=== PATIENT | male | born 1985 | race Caucasian/White ===

== ENCOUNTER 2016-06-24 20:20 | Inpatient (IN) ==
[2016-06-24] MEDS ORDERED: ZOFRAN IV ONE (20:43)
[2016-06-24] MEDS ORDERED: NS 1,000 ML IV ONE (20:43)
[2016-06-24] MEDS ORDERED: PROTONIX 80 MG in NS 80 ML IV ONE (20:43)
[2016-06-24] MEDS ORDERED: NS 1,000 ML ONE (20:43)
[2016-06-24 20:58] LABS: MANUAL DIFF NEEDED? NO
[2016-06-24 21:12] LABS: BASO% 0.3 % (0.0-0.8); EOS# 0.02 X1000 (0.0-0.7); EOS% 0.1 % (0.0-10.0); HEMATOCRIT 20.1 % (42.0-52.0); HEMOGLOBIN 7.1 g/dL (14.0-18.0); IMM GRAN# 0.07 X1000 (0.0-0.04); IMM GRAN% 0.5 % (0.0-0.5); LYMPH# 4.19 X1000 (1.2-3.4); LYMPH% 28.3 % (20.5-51.1); MCH 29.5 PG (27-31); MCHC 35.3 g/dL (33-37); MCV 83.4 FL (81-99); MONO# 0.96 X1000 (0.11-0.59); MONO% 6.5 % (1.7-9.3); MPV 9.5 FL (7.4-10.4); NEUT% 64.3 % (42.2-75.2); PLT 335 X1000 (130-400); RBC 2.41 XMIL (4.7-6.1)
[2016-06-24 21:18] LABS: INR 1.06; PROTIME 11.2 Seconds (9.2-11.7); PTT 21.9 Seconds (22.0-36.0)
[2016-06-24 21:21] LABS: AGAP 19; ALBUMIN 3.9 g/dL (3.5-5.0); ALKALINE PHOSPHATASE 57 U/L (32-122); BUN 29 mg/dL (8-22); CALCIUM 8.6 mg/dL (8.8-10.2); CHLORIDE 95 mmol/L (98-107); COSMO 278; GOT 22 U/L (10-34); GPT 13 U/L (10-44); LIPASE 19 U/L (13-60); POTASSIUM 3.3 mmol/L (3.5-5.1); SODIUM 135 mmol/L (136-145); TCO2 21 mmol/L (25-35); TOTAL BILIRUBIN 0.31 mg/dL (0.20-1.00); TOTAL PROTEIN 6.7 g/dL (6.3-8.3)
[2016-06-24] MEDS ORDERED: NS 500 ML ONE (22:13)
--- NOTE | 2016-06-24 23:14 | HISTORY AND PHYSICAL ---
CHIEF COMPLAINT: Fatigued, dark stools x2 weeks. HISTORY OF PRESENTING ILLNESS: This is a 30-year-old male with a history of fibromyalgia who had been started on NSAIDs about 2 weeks ago, presented to emergency department complaining of roughly noticing dark tarry stools over the past several days. He says there was some blood initially 2 weeks ago and seemed to improve and then some dark stools began. He was getting fatigued and lightheaded and subsequently had come to the emergency department. In the ER, he was evaluated and it was noted that he was profoundly anemic and due to his presenting symptoms, it was suspected he had an upper gastrointestinal bleed. The patient will need hospitalization for further management. At the time of my examination, he had denied any headache, vision changes, fevers, chills, chest pain, shortness of breath, hemoptysis or any weight changes, but just stated he felt lightheaded. PAST MEDICAL HISTORY: Fibromyalgia. PAST SURGICAL HISTORY: None. ALLERGIES: NO KNOWN DRUG ALLERGIES. CURRENT MEDICATIONS: 1. Naproxen. 2. Neurontin. 3. Ultram. SOCIAL HISTORY: He chews tobacco. No history of alcohol or illicit drug use. FAMILY HISTORY: No history of coronary disease. REVIEW OF SYSTEMS: [employer] point systems is listed as in HPI. Other systems negative. PHYSICAL EXAMINATION: GENERAL: Cooperative, friendly male. He is resting comfortably now. VITAL SIGNS: Temperature 98.1 degrees, pulse of 115, respiration 18, blood pressure 112/60. HEENT: Atraumatic, normocephalic. Extraocular movements intact. PERRLA. Scleral conjunctivae. NECK: No masses. CHEST: Clear to auscultation. CARDIOVASCULAR: Tachycardic. ABDOMEN: Soft. Positive bowel sounds. EXTREMITIES: No edema. NEUROLOGIC: He is awake, alert, oriented x3. : No bladder distention. SKIN: Warm. LABORATORIES AND STUDIES: WBC 14.78, hemoglobin 7.1, hematocrit 20.1, platelets 335,000. Sodium 135, potassium 3.3, chloride 95, CO2 is 21, BUN is 29, creatinine 0.8, glucose is 136. ASSESSMENT: A 30-year-old male with a history of fibromyalgia who had been started on nonsteroidal antiinflammatory drugs, developed dark tarry stools. He was becoming more lightheaded and fatigued and due to symptoms it was suspected he had a gastrointestinal bleed. He will need hospitalization for further management. 1. Suspected upper gastrointestinal bleed. 2. Profound anemia. 3. Fibromyalgia. PLAN: 1. I will admit patient to medical floor with telemetry. 2. We will start patient on a proton pump inhibitor. 3. Blood transfusion was started in the emergency room. 4. We will monitor patient closely. 5. We will hold all nonsteroidal antiinflammatory drugs. 6. Consult Gastroenterology. 7. We will put patient on deep venous thrombosis prophylaxis with Sequential Compression Devices. 8. We will continue to follow and reassess. cc: Billy Goncalves MD
[2016-06-24] MEDS: PROTONIX 80 MG in NS 80 ML IV SCH (23:33)
[2016-06-25] MEDS: NS 1,000 ML IV SCH ×5 (00:30→19:05)
[2016-06-25] MEDS ORDERED: NS 500 ML ONE (03:44)
--- NOTE | 2016-06-25 05:42 | EKG Report ---
Test Performed on : 06/24/2016 8:33:53 PM Test Reason : gi bleed Blood Pressure : / mmHG Vent. Rate : 149 BPM Atrial Rate : 149 BPM P-R Int : 112 ms QRS Dur : 086 ms QT Int : 340 ms P-R-T Axes : 085 083 060 degrees QTc Int : 535 ms Sinus tachycardia. Marked ST abnormality, possible inferior subendocardial injury Abnormal ECG No previous ECGs available Unconfirmed Result
[2016-06-25] MEDS: PROTONIX 80 MG in NS 80 ML IV SCH (08:42)
[2016-06-25 09:19] LABS: HEMATOCRIT 22.7 % (42.0-52.0); HEMOGLOBIN 7.8 g/dL (14.0-18.0); MCH 28.6 PG (27-31); MCHC 34.4 g/dL (33-37); MCV 83.2 FL (81-99); MPV 9.2 FL (7.4-10.4); RBC 2.73 XMIL (4.7-6.1)
[2016-06-25 09:27] LABS: AGAP 17; BUN 19 mg/dL (8-22); CALCIUM 8.1 mg/dL (8.8-10.2); CHLORIDE 103 mmol/L (98-107); COSMO 284; POTASSIUM 3.6 mmol/L (3.5-5.1); SODIUM 141 mmol/L (136-145); TCO2 21 mmol/L (25-35)
[2016-06-25] MEDS ORDERED: DILAUDID IM ONE (11:06)
[2016-06-25] MEDS ORDERED: DILAUDID IV ONE (11:23)
[2016-06-25] MEDS: ZOFRAN IV PRN ×2 (11:29→15:21)
[2016-06-25] MEDS ORDERED: EPINEPHRINE SYRINGE ONE (14:10)
[2016-06-25] MEDS ORDERED: DIPRIVAN 1% ONE (14:16)
[2016-06-25] MEDS ORDERED: ANESTHESIA PB SET 88 IN 5742 ONE (15:09)
[2016-06-25] MEDS ORDERED: NS 1,000 ML ONE (15:09)
--- NOTE | 2016-06-25 17:56 | CONSULTATION ---
DATE OF CONSULTATION: 06/25/2016 REASON FOR REFERRAL: Melena, severe anemia. HISTORY OF PRESENT ILLNESS: This is a 30-year-old white male, who reports onset of symptoms for about 1 week. He had noticed some problems with constipation, which he reports having off and on since he was young. He usually takes an enema at least once a week. He had noted last Saturday feeling sick to his stomach. At that time he noticed green stools, but he had some constipation and had to do an enema 5 days in a row. He then started noticing black stools. He had developed weakness and dyspnea. 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 He reports being on naproxen daily off and on for at least 6 months. He states there are times when naproxen makes his reflux and heartburn worse so he stops it for a little bit until his reflux/heartburn symptoms improve. He will also use Excedrin every 1-2 weeks as needed. He reported one episode of vomiting. Denied hematemesis but reports abdominal pain at times, especially with constipation. He also reports an episode of "maría looking stool" about a week ago. He has had some dizziness and lightheadedness. He reports fatigue. PAST MEDICAL HISTORY: Fibromyalgia. PAST SURGICAL HISTORY: None. ALLERGIES: No known drug allergies. HOME MEDICATIONS: Ultram 100 mg every 8 hours, naproxen 220 mg every 8 hours as needed, and gabapentin 300 mg 3 times a day. SOCIAL HISTORY: He lives with his mother. He is currently not working. He used to work for [employer]. States that since his fibromyalgia diagnosis, he has not been able to work much. He does report chewing tobacco. He denies alcohol use. REVIEW OF SYSTEMS: Per history of present illness. PHYSICAL EXAMINATION: Vital Signs: Temperature 99.7 degrees, pulse 98, respirations 16, blood pressure 109/67. General Appearance: Generally, the patient is awake and alert, in no acute distress. Skin color pale. HEENT: Normocephalic, atraumatic. Pupils equal, round, reactive to light. Conjunctivae are pale. Respiratory: Lung sounds clear bilaterally. Cardiovascular: Tachycardia noted. Abdomen: Soft, positive bowel sounds. Extremities: No lower extremity edema noted. Pedal pulses positive bilaterally. Neurological: Cranial nerves 2-12 grossly intact. Patient is awake, alert, oriented to person, place, and time. DIAGNOSTIC RESULTS/LABORATORY: Hematology: White count 12.21, hemoglobin 7.8, hematocrit 22.7. This is after 2 units of packed red blood cells. On admission his hemoglobin was 7.1, hematocrit 20.1, MCV 83.2. Coagulation prothrombin time 11.2, INR 1.06, PTT 21.9. Chemistry: Sodium 141, potassium 3.6, chloride 103, CO2 21, BUN 19, creatinine 0.6, glucose 100. Total bilirubin 0.31. AST 22, ALT 13, alkaline phosphatase 57, lipase 19. ASSESSMENT AND PLAN: 1. Melena. 2. Anemia. 3. Chronic constipation. 4. Fibromyalgia with NSAID use. PLAN: Monitor hemoglobin and hematocrit. Transfuse further packed red blood cells as needed. Monitor for any active bleeding. We will proceed with an esophagogastroduodenoscopy today. Further plans will be made according to findings. I have discussed the procedure with the patient and his mother, along with benefits and risks of the procedure and they wish to proceed. Further plans will be made according to Dr. Francis. Thank you for this consult. Dictated by SINDHU Kang for Ronal Francis MD cc: SINDHU Kaufman MD [facility]
[2016-06-25 19:29] LABS: RETIC% 5.99 % (0.8-2.1); RETIC-HE 35.3 PG (28.2-36.6)
[2016-06-25] MEDS: ULTRAM PO SCH (20:38)
--- NOTE | 2016-06-25 21:07 | PROGRESS NOTE ---
DATE: 06/25/2016 SUBJECTIVE: The patient complains of aches and pains in his legs. He denies having any abdominal pain. OBJECTIVE: Vital Signs: Temperature 98.7 degrees, blood pressure 94/48, heart rate 96, respirations 17, O2 saturations 100% on room air. General: This is a young male, lying in bed. Psych: In no acute distress. HEENT: Normocephalic atraumatic. Heart: S1, S2 normal tachycardic. Lungs: Clear to auscultation bilaterally. No wheezing. No rales. No rhonchi. Abdomen: Positive bowel sounds. Soft, nontender, nondistended. Extremities: No edema. No cyanosis. No calf tenderness. LABS: CBC: White blood cell count 12, hemoglobin 7.8, hematocrit 22, platelets 192,000. Chem: Sodium 141, potassium 3.6, chloride 93, CO2 21, BUN 19, creatinine 0.6, glucose 100. ASSESSMENT AND PLAN: 1. Severe anemia. The patient is scheduled to undergo an EGD today. His hemoglobin and hematocrit is slightly improved, but still low at 7.8 and 22.7, respectively. We will await the findings of the endoscopy. 2. Leukocytosis. We will check a urinalysis and a chest x-ray. If the patient does have a low- grade fever, we will also order blood cultures. cc: Gauri Wilder MD
[2016-06-26] MEDS: NS 1,000 ML IV SCH (00:31)
[2016-06-26] MEDS: PROTONIX 80 MG in NS 80 ML IV SCH ×3 (01:05→18:43)
--- NOTE | 2016-06-26 04:04 | OPERATIVE NOTE ---
PROCEDURE DATE: 06/25/2016 PROCEDURE: Esophagogastroduodenoscopy and hemorrhage control. PREOPERATIVE DIAGNOSES: 1. Acute gastrointestinal bleed. 2. Anemia secondary to gastrointestinal bleed. POSTOPERATIVE DIAGNOSIS: Duodenal ulcer with visible vessel treated. HISTORY: This is a 30-year-old gentleman admitted to hospital with profound anemia and he had a history of melena. EGD was done for diagnostic as well as therapeutic purposes. DESCRIPTION OF PROCEDURE: Informed consent obtained from the patient. The procedure, risks, benefits, alternatives were explained in layman's terms. He understood. All his pertinent questions were answered. Patient was brought to the endoscopy unit and was premedicated as per Anesthesia. After adequate sedation, while he was lying in left lateral position, the gastroscope was introduced into the posterior pharynx and advanced under direct vision into the esophagus. Esophagus in its entire length appeared to be normal. No esophagitis, webs, rings, varices were seen. Scope was then passed through the esophagus into the stomach. Stomach was examined on both straight and retroflexed views, which revealed normal cardia, fundus, body, and antrum. Again, I did not see any evidence of ulcer, AVM or masses that would explain his anemia or bleeding. The scope was then passed through the pylorus into the duodenal bulb, and then 2nd part of the duodenum. At the junction between the duodenal bulb and the 2nd of the part duodenum, there was hyperemia, edema noted and an ulcer was seen at about 11 to 12 o' clock position. The ulcer had a visible vessel on the side. There was no active bleeding noted. Using a sclerotherapy needle, I injected 1:10,000 epinephrine in aliquots of 0.5 mL. A total of about 2 mL was injected in and around the vessel area. Then, I used a heater probe and applied 15 joules of current a couple of times to completely obliterate the area. I watched the area for another few minutes. Did not see any evidence of bleeding. Scope was then removed. Patient tolerated procedure well. No complications noted. Patient was then transferred to the recovery area in a stable condition. IMPRESSION: Duodenal ulcer with visible vessel treated. RECOMMENDATION: 1. Advised to continue proton pump inhibitor. I would continue the IV infusion for another 24 hours. Switch it to p.o. 2. If he is stable enough, hemoglobin and hematocrit is stable, he can be discharged if medical condition allows and follow up with me at the office after discharge. Depending on his progress from here on, further plans made. cc: Ronal Francis MD MTDD
[2016-06-26] MEDS: ULTRAM PO SCH ×3 (05:02→21:32)
[2016-06-26 06:12] LABS: MANUAL DIFF NEEDED? NO
[2016-06-26 06:21] LABS: BASO% 0.1 % (0.0-0.8); EOS# 0.01 X1000 (0.0-0.7); EOS% 0.1 % (0.0-10.0); HEMATOCRIT 20.3 % (42.0-52.0); HEMOGLOBIN 6.9 g/dL (14.0-18.0); IMM GRAN# 0.03 X1000 (0.0-0.04); IMM GRAN% 0.3 % (0.0-0.5); LYMPH# 1.94 X1000 (1.2-3.4); LYMPH% 20.1 % (20.5-51.1); MCH 28.6 PG (27-31); MCV 84.2 FL (81-99); MONO# 0.92 X1000 (0.11-0.59); MONO% 9.5 % (1.7-9.3); MPV 9.1 FL (7.4-10.4); NEUT% 69.9 % (42.2-75.2); PLT 179 X1000 (130-400); RBC 2.41 XMIL (4.7-6.1)
[2016-06-26 06:37] LABS: AGAP 14; BUN 7 mg/dL (8-22); CALCIUM 8.1 mg/dL (8.8-10.2); CHLORIDE 107 mmol/L (98-107); COSMO 282; SODIUM 143 mmol/L (136-145); TCO2 22 mmol/L (25-35)
--- NOTE | 2016-06-26 08:47 | Diag Imaging Result Document ---
PROCEDURE NAME: CHEST-PORTABLE - 06/25/2016 PORTABLE CHEST X-RAY: COMPARISON: 10/02/2010. FINDINGS: The lungs are normally expanded and clear. Heart size and mediastinal contours are normal. No pneumothorax or pleural effusion. IMPRESSION: Negative exam.
[2016-06-26] MEDS: NEURONTIN PO SCH ×3 (09:24→16:33)
--- NOTE | 2016-06-26 12:59 | PROGRESS NOTE ---
DATE: 06/26/2016 The patient had EGD yesterday for acute GI bleed. Findings showed duodenal ulcer with visible vessel treated. He has been receiving IV PPI. His hemoglobin and hematocrit are lower today. He is receiving 2 units of packed red blood cells. He reports 1 black stool so far today. Yesterday evening he did have several black stools. Vital signs: Temperature 98.2 degrees, pulse 85, respirations 16, blood pressure 118/69. LABORATORY RESULTS: Hematology: White count 9.66, hemoglobin 6.9, hematocrit 20.3. He is currently receiving packed red blood cells. Chemistry: Sodium 143, potassium 3.0, chloride 107, CO2 22, BUN 7 and creatinine 0.5. Glucose 90. ASSESSMENT AND PLAN: 1. GI bleed. 2. Severe anemia. 3. Duodenal ulcer with visible vessel treated. 4. Fibromyalgia with NSAID use. 5. Chronic constipation. PLAN: Continue supportive care. Continue to monitor hemoglobin and hematocrit. Monitor for active bleeding. Transfuse further packed red blood cells as needed. Further plans to be made according to his progress. I have discussed this case with Dr. Francis. Dictated by SINDHU Kang for Ronal Francis MD cc: SINDHU Kaufman MD
[2016-06-26] MEDS ORDERED: KLOR-CON PO ONE (13:08)
[2016-06-26] MEDS ORDERED: NS 500 ML ONE (14:34)
[2016-06-26] MEDS ORDERED: VITAMIN D PO SCH (15:15)
[2016-06-26] MEDS: FOLIC ACID PO SCH (16:33)
[2016-06-27] MEDS: ULTRAM PO SCH (04:28)
[2016-06-27] MEDS: PROTONIX 80 MG in NS 80 ML IV SCH (04:29)
[2016-06-27 07:30] VITALS: BP 101/72
[2016-06-27 07:38] LABS: MANUAL DIFF NEEDED? NO; MONO% 9.1 % (1.7-9.3)
[2016-06-27 08:29] LABS: AGAP 11; BUN 4 mg/dL (8-22); CALCIUM 8.9 mg/dL (8.8-10.2); CHLORIDE 104 mmol/L (98-107); COSMO 277; MAGNESIUM 1.7 mg/dL (1.5-2.7); POTASSIUM 3.1 mmol/L (3.5-5.1); SODIUM 141 mmol/L (136-145); TCO2 26 mmol/L (25-35)
[2016-06-27] MEDS: FOLIC ACID PO SCH (08:30)
[2016-06-27] MEDS: NEURONTIN PO SCH (08:30)
[2016-06-27] MEDS ORDERED: KLOR-CON PO ONE (08:41)
[2016-06-27] MEDS ORDERED: PROTONIX PO SCH (09:00)
[2016-06-27 09:13] LABS: BASO% 0.2 % (0.0-0.8); EOS# 0.08 X1000 (0.0-0.7); HEMATOCRIT 29.1 % (42.0-52.0); HEMOGLOBIN 10.1 g/dL (14.0-18.0); IMM GRAN# 0.04 X1000 (0.0-0.04); IMM GRAN% 0.5 % (0.0-0.5); LYMPH# 2.06 X1000 (1.2-3.4); LYMPH% 25.1 % (20.5-51.1); MCHC 34.7 g/dL (33-37); MCV 86.4 FL (81-99); MONO# 0.75 X1000 (0.11-0.59); NEUT% 64.1 % (42.2-75.2); PLT 201 X1000 (130-400); RBC 3.37 XMIL (4.7-6.1)
--- NOTE | 2016-06-27 14:15 | PROGRESS NOTE ---
DATE: 06/26/2016 SUBJECTIVE: The patient states that he feels good. He has had several bowel movements so far. He states that they are dark and tarry consistent with old blood. OBJECTIVE: Vital Signs: Temperature 98.3 degrees, blood pressure 118/77, heart rate 96, respirations 16, O2 saturations 100% on room air. General: This is a young male lying in bed in no acute distress. Head: Normocephalic, atraumatic. Heart: S1, S2. Normal. Regular rate and rhythm. Lungs: Clear to auscultation bilaterally. No wheezes, no rales, no rhonchi. Abdomen: Positive bowel sounds. Soft, nontender, nondistended. Extremities: No edema. No cyanosis. No calf tenderness. Neurologic: The patient is alert and oriented x3. No focal neurologic deficits noted. LABS: White blood cell count 9.6, hemoglobin 6.9, hematocrit 20, platelets 179,000. Potassium 3, BUN 7, creatinine 0.5, calcium 8.1, folate 5.8, vitamin D 6.3. ASSESSMENT AND PLAN: 1. Gastrointestinal bleed secondary to duodenal ulcer with a visible vessel. The patient's hemoglobin and hematocrit is a little bit lower today. We will transfuse 2 units of packed red blood cells. Continue on Protonix. Will repeat the patient's hemoglobin and hematocrit tomorrow. 2. Folate deficiency. Will start the patient on folic acid. 3. Vitamin D deficiency. Will start the patient on vitamin D2. 4. Disposition. The patient will be discharged home once his hemoglobin and hematocrit are stable. cc: Gauri Wilder MD
--- NOTE | 2016-06-28 11:39 | DISCHARGE SUMMARY ---
ADMISSION DATE: 06/24/2016 DISCHARGE DATE: 06/27/2016 CONSULTATIONS: Dr. Francis with Gastroenterology. PERTINENT PROCEDURES: Esophagogastroduodenoscopy and hemorrhage control performed by Dr. Francis. DISCHARGE DIAGNOSES: 1. Gastrointestinal bleed 2. Anemia secondary to gastrointestinal bleed 3. Duodenal ulcer with exposed vessel 4. Osteoarthritis HOSPITAL COURSE: Mr. Valenzuela is a 30-year-old male with a past medical history of fibromyalgia who reported to the emergency department with onset of symptoms for about a week. He had constipation problems, which he has been having on-and-off since he was young. He usually takes an enema at least once a week. He noted last Saturday he was feeling sick to the stomach. At that time, he noticed green stools, but then he had some constipation and he had to do an enema 5 days in a row. He started noticing black stools. He developed weakness and dyspnea. He was diagnosed with fibromyalgia. 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 He reports being on naproxen daily on-and- off for the last 6 months. He did state there are several times when the naproxen makes his reflux and heartburn worse, so he will stop it until his reflux symptoms improve. He will also use Excedrin every 1-2 weeks as needed. He reported 1 episode of vomiting. Denied hematemesis, but does report abdominal pain at times, especially with constipation. Also reported dizziness, lightheadedness, and fatigue. Patient was admitted. He was started on IV proton pump inhibitors. He was transfused in the emergency room with PRBCs. His hemoglobin and hematocrit were monitored closely. We held all NSAIDs. Gastroenterology was consulted. Patient did undergo an EGD with hemorrhage control and Dr. Francis found a duodenal ulcer. Patient did receive a total of 4 units of PRBCs. We did continue with supportive care, monitored his hemoglobin and hematocrit closely. Hemodynamically, the patient has remained stable. He is appropriate for discharge home today. VITAL SIGNS AT THE TIME OF DISCHARGE: Temperature is 97.9 degrees, heart rate 83, respirations 14, blood pressure 101/72, and O2 is 99% on room air. DISCHARGE LABORATORY: Patient's hemoglobin and hematocrit on discharge were 10 and 29, platelet count of 201,000. DISCHARGE DIET: GI soft, advance as tolerated. DISCHARGE MEDICATIONS: 1. Vitamin D2, 5000 units p.o. to take every 7 days. 2. Folic acid 1 mg p.o. daily. 3. Protonix 40 mg p.o. b.i.d. 4. Ultram 100 mg p.o. q.8 hours. FOLLOWUP: Patient is being discharged home. He will need to follow up with Dr. Francis on 07/19/2016 at 1:30 p.m. He will need to follow up with a primary care physician from a list that has been provided to him. Patient can return to the emergency department for any worsening of symptoms. DISCHARGE INSTRUCTIONS: He has been advised to avoid non-steroidal anti- inflammatory drugs as well as follow a gastroesophageal reflux disease lifestyle change diet. DISCHARGE TIME: 30 minutes. Dictated by SINDHU Allen for Gauri Wilder MD cc: Gauri Wilder MD MTDD
--- NOTE | 2016-07-04 23:06 | PROVIDER DOCUMENTATION ---
This chart was entered by Anatoliy Medeiros Scribe, acting as scribe for Shakir Ugalde MD. HPI-Abdominal Pain/GI Problem - General Chief Complaint: GI Bleed Stated Complaint: BLOOD IN STOOL, VOMITING, NO ENERGY Time Seen by Provider: 06/24/16 20:28 Source: patient, family Allergies/Adverse Reactions: Patient Allergies Allergy/AdvReac Type Severity Reaction Status Date / Time No Known Allergies Allergy Verified 06/24/16 21:06 Home Medications: Home Medication List Medication Instructions Recorded Confirmed Last Taken Type Ergocalciferol (Vitamin D2) 50,000 unit PO Q7D #10 capsule 06/27/16 Unknown Rx [Vitamin D] Folic Acid 1 mg PO DAILY #30 tablet 06/27/16 Unknown Rx Gabapentin 300 mg PO TID #90 capsule 06/27/16 Unknown Rx Pantoprazole [Protonix] 40 mg PO BID #60 tablet 06/27/16 Unknown Rx Tramadol [Ultram] 100 mg PO Q8HR #90 tablet 06/27/16 Unknown Rx - History of Present Illness-ABD Nature of Presenting Problems: Pt is a 30 yom who presents to ER with CC of black/tarry bm's. Pt reports that on Saturday, he became constipated and gave himself an enema. Pt reports that he had 1 black/tarry bm naturally and approximately 5 more black/tarry bm's after enema. Pt reports that he vomited on (vomited up food he had eaten earlier) and has been nauseas since, but has not vomited anymore. Pt complains of dizziness/lightheadedness on standing, severely lethargic, and severely pale. Abdominal Pain Onset Location: reports: generalized abdomen Pain Radiation: reports: no radiation Severity in ED: reports: severe Onset/Duration: reports: 4 days ago Timing: reports: still present Associated Symptoms: reports: constipation, diarrhea, dizziness, fatigue, loss of appetite, nausea, vomiting, weakness. denies: anxiety, arm pain, back/neck pain, chest pain, cough, diaphoresis, EENT symptoms, fever/chills, genitourinary problems, headaches, heartburn, joint pain, malaise, muscle aches , sinus congestion/drainage, rash, seizure, shortness of breath, sensory/motor loss, pain with inspiration, swelling/mass in abdomen, syncope, trouble walking Last BM: this evening Dark Stools Present?: reports: black, tarry Rectal Bleeding: reports: none Rectal Pain: reports: none Emesis Description: reports: other (food) Review of Systems - Adult - REVIEW OF SYSTEMS - ADULT Constitutional: reports: belia. denies: chills, fever, night sweats, weight gain, weight loss Eyes: reports: no symptoms reported Ears, Nose, Mouth & Throat: reports: no symptoms reported Cardiovascular: reports: no symptoms reported Respiratory: reports: no symptoms reported Gastrointestinal: reports: constipation, diarrhea, nausea, poor appetite, vomiting. denies: abdominal pain, hematemesis, difficulty swallowing, frequent heartburn, rectal bleeding Genitourinary: reports: no symptoms reported Musculoskeletal: reports: no symptoms reported Integumentary: reports: other (pale). denies: hives, hair loss, itching, mole changes, nail changes, rash, skin sores/ulcer, skin thickening Neurological: reports: dizziness/vertigo. denies: ataxia, headache/migraines, loss of balance, numbness, paresthesia, seizure, slurred speech, syncope, tremors Psychiatric: reports: no symptoms reported Endocrine: reports: no symptoms reported Hematologic/Lymphatic: reports: no symptoms reported Allergic/Immunologic: reports: no symptoms reported All Other Systems: Reviewed and Negative Past History - Adult - PAST MEDICAL HISTORY-ADULT Review of Records: reports: Nursing Assessment Review, Medications Reviewed - IMMUNIZATION STATUS Childhood Immunizations: See Nurse Assessment Flu Vaccine: See Nurse Assessment Physical Exam-General - PHYSICAL EXAM-ADULT Initial Vital Signs Reviewed: Yes - CONSTITUTIONAL General Appearance: appears well, alert, severe distress, lethargic, slow to respond. negative: no apparent distress, mild distress, moderate distress - EYES Eyes: PERRL/EOMI, fundi clear, no AV nicking, pale conjunctivae. negative: pink conjunctivae - HEAD, EARS, NOSE, MOUTH & THROAT HENMT: normocephalic/atraumatic, moist mucous membranes, normal ENT inspection, TMs normal, pharynx normal - NECK Neck: non-tender, full range of motion, supple, normal inspection. negative: C- spine tenderness, limited range of motion, lymphadenopathy - RESPIRATORY Respiratory: chest non-tender, lungs clear, normal breath sounds, no pleuratic chest pain, no respiratory distress, no accessory muscle use. negative: respiratory distress, decreased breath sounds, accessory muscle use, stridor, wheezing - CARDIOVASCULAR Cardiovascular: normal peripheral pulses, tachycardia. negative: regular rate, rhythm, irregularly irregular - GASTROINTESTINAL (ABDOMEN) Abdominal Exam: normal bowel sounds, soft, no organomegaly, no pulsatile mass, tenderness (generalized). negative: non tender - MUSCULOSKELETAL Back Exam: normal inspection, no CVA tenderness, no vertebral tenderness. negative: CVA tenderness, decreased range of motion, ecchymosis, muscle spasm, scoliosis, swelling, vertebral tenderness Extremity: normal range of motion, non-tender, normal gait, normal inspection, no pedal edema, no calf tenderness, normal capillary refill. negative: deformity, erythema, inflammation, swelling, tenderness - SKIN Integumentary: normal turgor, warm/dry, pallor. 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 negative: facial droop, focal weakness, motor weakness, sensory deficit - PSYCHIATRIC Psych/Mental Status: normal thought content, normal thought process, oriented x 3, depressed affect. negative: normal mood/affect Progress - PLAN OF CARE/RESULTS Progress/Plan/Lab Results: Vital Signs - 8 hr 06/24/16 20:28 Temperature 98.1 F Pulse Rate 196 H Respiratory Rate 20 Blood Pressure 131/61 O2 Sat by Pulse Oximetry 100 Result Diagrams: 06/27/16 06:25 06/27/16 06:35 - EKG 1 Time of EKG reading by physician:: 20:33 EKG Read and Signed by:: Shakir Ugalde EKG Interpretation (*Must complete 3 of following elements*): Abnormal (Marked ST abnormality, possible inferior subendocardial injury) Rate: 149 Rhythm: Sinus tachycardia - CONSULTS/PCP/HOSPITALIST Notification #1 *Consult/PCP/Hospitalist*: Dr. Goncalves (Hospitalist) Time Discussed: 22:17 Consult Disposition: Admit Departure - Departure Time of Disposition Decision: 21:32 DIAGNOSIS: GI bleed Disposition: ADMITTED INPATIENT 09 Certified Medical Emergency: Emergent Condition: Stable - Critical Care Note This patient required my direct personal management.: Yes This chart was documented by the indicated scribe, (Anatoliy Medeiros, [place]) and accurately reflects the services I performed and decisions made by me, Shakir Beatty MD, as attested by the provider's signature.
== END 2016-06-27 10:17 | disposition home or self-care (01) ==
LOC: ED 20:20 → SUATTDRO 23:12 → 4N 23:12 → 3N 06-25 12:20
PROVIDERS: ATTEND Internal Medicine
PROC: EN.HEAT (2016-06-25 13:50)